=== PATIENT | male | born 1990 | race Hispanic/Latino ===

== ENCOUNTER 2018-08-07 17:33 | Emergency (ER) | payer SELFPAY ==
[~2018-08-07] VITALS: Ht 170.2 cm; Wt 81.6 kg
--- OUTSIDE RECORDS SUMMARY | 2018-08-07 17:34 | XMS REPORT | Clinical Summary ---
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 Active Problems Not on file Encounters Care Team Description Date Type Specialty Ed Ortiz MD Sprain of left ankle, unspecified ligament, initial encounter (Primary Dx) 04/03/2018 Emergency Emergency Medicine 04/03/2018 Travel after 08/06/2017 Social History Date Tobacco Use Types Packs/Day Years Used Current Every Day Smoker Smokeless Tobacco: Never Used Alcohol Use Drinks/Week oz/Week Comments No Alcohol Habits Answer Date Recorded How often do you have a drink containing alcohol? Never 04/03/2018 How many drinks containing alcohol do you have on Not asked a typical day when you are drinking? How often do you have six or more drinks on one Not asked occasion? Sex Assigned at Date Recorded Not on file Industry Job Start Date Occupation Not on file Not on file Not on file Travel End Travel History Travel Start No recent travel history available. Last Filed Vital Signs Time Taken Vital Sign Reading 04/03/2018 12:39 PM [employer] Blood Pressure 140/73 04/03/2018 12:39 PM SIGN LANG[employer]AGE IN[employer] Pulse 97 04/03/2018 11:28 AM SIGN LANGUAGE INSTRUCTOR Temperature 37.1 C (98.8 F) 04/03/2018 12:39 PM S[employer]AGE IN[employer] Respiratory Rate 16 04/03/2018 12:39 PM SIGN LANGUAGE IN[employer]CTOR Oxygen Saturation 99% - Inhaled Oxygen - Concentration 04/03/2018 11:29 AM SIGN LANGUAGE INSTRUCTOR Weight 86.2 kg (190 lb) 04/03/2018 11:29 AM SIGN LANGUAGE INSTRUCTOR Height 170.2 cm (5' 7") 04/03/2018 11:29 AM SIGN LANGUAGE INSTRUCTOR Body Mass Index 29.76 Plan of Treatment Health Maintenance Due Date Last Done Comments INFLUENZA VACCINE 09/19/2018 Procedures Comments Procedure Name Priority Date/Time Associated Diagnosis XR ANKLE 3+ VW LEFT STAT 04/03/2018 12:08 PM SIGN LANGUAGE INSTRUCTOR SPLINT APPLICATION Routine 04/03/2018 11:55 AM SIGN LANGUAGE INSTRUCTOR after 08/06/2017 Results * XR Ankle 3+ Vw Left (04/03/2018 12:08 PM SIGN LANGUAGE INSTRUCTOR) Specimen Narrative Performed At EXAMINATION:XR ANKLE 3VW LEFT [facility] CLINICAL HISTORY:Trauma COMPARISON:None. IMPRESSION: There is no evidence of fracture or dislocation No focal lesions are present Ankle mortise is not widened [id number] Procedure Note Hm Interface, Radiology Results Incoming - 04/03/2018 12:13 PM SIGN LANGUAGE INSTRUCTOR EXAMINATION: XR ANKLE 3 VW LEFT CLINICAL HISTORY: Trauma COMPARISON: None. IMPRESSION: There is no evidence of fracture or dislocation No focal lesions are present Ankle mortise is not widened [id number] Performing Organization Address [facility]/State[facility] [address] [place] [address] * Splint Application (04/03/2018 11:55 AM SIGN LANGUAGE INSTRUCTOR) Narrative Performed At Shane Eduardo NP 04/03/20181:26 PM Splint Application Performed by: Shane Eduardo NP Authorized by: Ed Ortiz MD Consent: Consent obtained:Verbal Consent given by:Patient Risks discussed:Discoloration, numbness, pain and swelling Pre-procedure details: Sensation:Normal Skin color:Normal Procedure details: Laterality:Left Location:Ankle Ankle:L ankle Splint type: Air splint Post-procedure details: Pain:Improved Sensation:Normal Skin color:Normal Patient tolerance of procedure:Tolerated well, no immediate complications after 08/06/2017 Insurance Type Payer Benefit Subscriber ID Effective Phone Address Plan / Dates Group PPO BCBS BCBS xxxxxxxxxxxxxxx 2017- CHOICE Present PPO/MICHEL SETH PPO Advance Directives Patient has advance care planning documents on file. For more information, isis dove contact: Grey Hernández [address] [place] [address]
--- OUTSIDE RECORDS SUMMARY | 2018-08-07 17:35 | XMS REPORT | Summary of Care ---
Author Author Brianna Huang M.A. Unknown Address Unknown Phone Unavailable Care Team Providers Care Accounting Officer Name Role Phone GAEL MONSON N.P. Unavailable Unavailable IONA ROSENBERG VT, GAEL Unavailable Unavailable JEANETTE RO VT, PINA Pelayo Unavailable Unavailable Functional Status Name Dates Details Functional status health issues are not documented Status: Name Dates Details Cognitive status health issues are not documented Status: Problems Name Dates Details Achilles bursitis of left lower extremity (726.71, M76.62) Status: Active Medications Name Dates Details Medications not documented Allergies and Adverse Reactions Name Dates Details Allergy history not documented Status: Procedures Procedure Dates Details Procedures not documented Immunization Name Dates Details Immunizations not documented Social History Name Dates Details Unknown if ever smoked Vital Signs Date Test Result Details No Known Vitals to report Results Date Description Value Details Results not documented Plan of Care Name Dates Details Planned Observations Planned Goals not documented Planned Encounters Appointment; GAEL MONSON NP On: 19-Apr-2018 8:15 Instructions Name Dates Details Instructions not documented Encounters Appointment; GAEL MONSON NP Encounter Diagnosis: Problem not documented On: 05-Apr-2018 10:15
--- OUTSIDE RECORDS SUMMARY | 2018-08-07 17:35 | XMS REPORT | Continuity of Care Document ---
Author Author [facility] Interface Address Unknown Phone Unavailable Problems Problem Status Onset Date Classification Date Reported Comments Source Discharge Diagnosis: Head injury 07/17/2013 07/20/2013 [facility] Discharge Diagnosis: Facial laceration 07/17/2013 07/20/2013 [facility] Discharge Diagnosis: Drug abuse 07/17/2013 07/20/2013 [facility] Discharge Diagnosis: Altered mental status 07/17/2013 07/20/2013 [facility] AMS Active 07/17/2013 [facility] Medications Medication Details Route Status Patient Instructions Ordering Provider Order Date Source Potassium Chloride 20 mEq, Route: PO, Drug form: ERTAB, ONCE, Dosing Weight 84.091, kg, Priority: STAT, Start date: 07/17/13 14:38:00, Stop date: 07/17/13 14:38:00 Inactive 07/17/2013 [facility] Sodium Chloride 0.154 MEQ/ML Injectable Solution 1,000 mL, 1,000 ml/hr, Infuse Over: 1 hr, Route: IV, ONCE, Priority: STAT, Dosing Weight 84.091 kg, Start date: 07/17/13 13:57:00, Duration: 1 doses or times, Stop date: 07/17/13 13:57:00 Inactive 07/17/2013 [facility] Sodium Chloride 0.154 MEQ/ML Injectable Solution 1,000 mL, Rate: 100 ml/hr, Infuse over: 10.1 hr, Route: IV, Total Volume: 1,011.2, Start date: 07/17/13 13:48:00, Duration: 3 day, Stop date: 07/20/13 13:47:00 Inactive 07/17/2013 [facility] Sodium Chloride 0.9% IV 25 mL, Route: IV, Start date: 07/17/13 13:36:00, Duration: 30 day, Stop date: 08/16/13 13:35:00, PRN Line Flush Inactive 07/17/2013 [facility] BD Normal Saline Flush 10 mL, Route: IV, Drug Form: INJ, PRN, PRN Line Flush, Start date: 07/17/13 13:36:00, Duration: 30 day, Stop date: 08/16/13 13:35:00Notes: (Same as: BD Posiflush) Inactive 07/17/2013 [facility] Saline Flush 0.9% 5 mL, Route: IVP, Drug Form: INJ, kg, PRN, PRN Line Flush, Start date: 07/17/13 13:22:00, Duration: 30 day, Stop date: 08/16/13 13:21:00Notes: (Same as: BD Posiflush) Inactive 07/17/2013 [facility] Allergies, Adverse Reactions, Alerts Substance Category Reaction Severity Reaction type Status Date Reported Comments Source Immunizations Immunization Date Given Site Status Last Updated Comments Source Results Order Name Results Value Reference Range Date Interpretation Comments Source DRUG SCREEN U Phencyc Scr Negative *NA* (07/17/13 3:52 PM) Negative 07/17/2013 [facility] DRUG SCREEN UDS Note See Note 3 (07/17/13 3:52 PM) 07/17/2013 3Interpretive Data: Drugs reported as positive have not been confirmed by a second method and should be used for medical purposes only. To order confirmation, contact laboratory. note: Below are cut-off concentrations for all urine drugs of abuse performed in the laboratory. Some drugs listed in the table may not be included in this panel. Description Cut-off concentration Amphetamine 1000 ng/mL Barbiturates 200 ng/mL Benzodiazepines 300 ng/mL Cocaine metabolites 300 ng/mL Opiates 300 ng/mL Phencyclidine 25 ng/mL Propoxyphene 300 ng/mL Marijuana metabolites 50 ng/mL Methadone 300 ng/mL Urine alcohol 20 mg/dL [facility] DRUG SCREEN U Cannab Scr Negative *NA* (07/17/13 3:52 PM) Negative 07/17/2013 [facility] DRUG SCREEN U Benzodia Scr Positive *ABN* (07/17/13 3:52 PM) Negative 07/17/2013 [facility] DRUG SCREEN U Cocaine Scr Negative *NA* (07/17/13 3:52 PM) Negative 07/17/2013 [facility] DRUG SCREEN U Opiate Scr Negative *NA* (07/17/13 3:52 PM) Negative 07/17/2013 [facility] DRUG SCREEN U Gissel Scr Negative *NA* (07/17/13 3:52 PM) Negative 07/17/2013 [facility] DRUG SCREEN U Amph Scr Negative *NA* (07/17/13 3:52 PM) Negative 07/17/2013 [facility] CARDIAC ENZYMES CK MB Index 0.4 0.0 - 2.5 07/17/2013 [facility] CARDIAC ENZYMES Troponin-I null 0.00 - 0.40 07/17/2013 [facility] CARDIAC ENZYMES CK MB 2.3 ng/mL 0.5 - 3.6 07/17/2013 [facility] CARDIAC ENZYMES Total CK 576 unit/L 12 - 191 07/17/2013 [facility] CHEM PANEL eGFR 65 mL/min/1.73m2 07/17/2013 1Result Comment: The eGFR is calculated using the CKD-EPI formula. In most young, healthy individuals the eGFR will be >90 mL/min/1.73m2. The eGFR declines with age. An eGFR of 60-89 may be normal in some populations, particularly the elderly, for whom the CKD-EPI formula has not been extensively validated. Use of the eGFR is not recommended in the following populations: Individuals with unstable creatinine concentrations, including patients and those with serious co-morbid conditions. Patients with extremes in muscle mass or diet. The data above are obtained from the National Kidney Disease Education Program (NKDEP) which additionally recommends that when the eGFR is used in patients with extremes of body mass index for purposes of drug dosing, the eGFR should be multiplied by the estimated BMI. [facility] CHEM PANEL Sodium Lvl 139 meq/L 135 - 145 07/17/2013 [facility] CHEM PANEL Chloride Lvl 104 meq/L 95 - 109 07/17/2013 [facility] CHEM PANEL CO2 22 meq/L 24 - 32 07/17/2013 [facility] CHEM PANEL Potassium Lvl 3.4 meq/L 3.5 - 5.1 07/17/2013 [facility] CHEM PANEL Calcium Lvl 8.5 mg/dL 8.5 - 10.5 07/17/2013 [facility] CHEM PANEL AGAP 16.4 meq/L 10.0 - 20.0 07/17/2013 [facility] CHEM PANEL Glucose Lvl 143 mg/dL 70 - 99 07/17/2013 2Interpretive Data: Adult reference range values reflect the clinical guidelines of the [place] [employer]. [facility] CHEM PANEL BUN 17 mg/dL 7 - 22 07/17/2013 [facility] CHEM PANEL Creatinine Lvl 1.7 mg/dL 0.5 - 1.4 07/17/2013 [facility] HEMATOLOGY Eosinophils # 0.3 K/CMM 0.0 - 0.5 07/17/2013 [facility] HEMATOLOGY Basophils # 0.0 K/CMM 0.0 - 0.2 07/17/2013 [facility] HEMATOLOGY Lymphocytes 29.5 % 20.0 - 40.0 07/17/2013 [facility] HEMATOLOGY Segs 62.0 % 45.0 - 75.0 07/17/2013 [facility] HEMATOLOGY Monocytes 5.8 % 2.0 - 12.0 07/17/2013 [facility] HEMATOLOGY Basophils 0.3 % 0.0 - 1.0 07/17/2013 [facility] HEMATOLOGY Eosinophils 2.4 % 0.0 - 4.0 07/17/2013 [facility] HEMATOLOGY Segs-Bands # 6.6 K/CMM 1.5 - 8.1 07/17/2013 [facility] HEMATOLOGY Lymphocytes # 3.2 K/CMM 1.0 - 5.5 07/17/2013 [facility] HEMATOLOGY Monocytes # 0.6 K/CMM 0.0 - 0.8 07/17/2013 [facility] HEMATOLOGY MCV 90.2 fL 80.0 - 94.0 07/17/2013 [facility] HEMATOLOGY MCH 30.2 pg 27.0 - 31.0 07/17/2013 [facility] HEMATOLOGY MCHC 33.5 g/dL 32.0 - 36.0 07/17/2013 [facility] HEMATOLOGY WBC 10.7 K/CMM 3.7 - 10.4 07/17/2013 [facility] HEMATOLOGY RDW 13.6 % 11.5 - 14.5 07/17/2013 [facility] HEMATOLOGY Platelet 196 K/CMM 133 - 450 07/17/2013 [facility] HEMATOLOGY MPV 9.3 fL 7.4 - 10.4 07/17/2013 [facility] HEMATOLOGY RBC 4.54 M/CMM 4.70 - 6.10 07/17/2013 [facility] HEMATOLOGY Hct 40.9 % 42.0 - 54.0 07/17/2013 [facility] HEMATOLOGY Hgb 13.7 g/dL 14.0 - 18.0 07/17/2013 [facility] HEMATOLOGY INR 1.04 0.85 - 1.17 07/17/2013 4Interpretive Data: RECOMMENDED RANGES FOR PROTIME INR: 2.0-3.0 for most medical and surgical thromboembolic states. 2.5-3.5 for artificial heart valves and recurrent embolism. INR SHOULD BE USED ONLY FOR PATIENTS ON STABLE ANTICOAGULANT THERAPY. [facility] HEMATOLOGY PT 13.5 s 12.0 - 14.7 07/17/2013 [facility] HEMATOLOGY PTT 26.2 s 22.9 - 35.8 07/17/2013 5Interpretive Data: Heparin Therapeutic Range: 57 - 92 Seconds [facility] Vital Signs Vital Sign Value Date Comments Source Heart Rate 75 07/17/2013 [facility] Temperature Oral (F) 98.0 F 07/17/2013 [facility] Respitory Rate 18 07/17/2013 [facility] Diastolic (mm Hg) 60 07/17/2013 [facility] Systolic (mm Hg) 113 07/17/2013 [facility] Respitory Rate 16 07/17/2013 [facility] Systolic (mm Hg) 118 07/17/2013 [facility] Diastolic (mm Hg) 72 07/17/2013 [facility] Heart Rate 85 07/17/2013 [facility] Temperature Oral (F) 98.2 F 07/17/2013 [facility] Diastolic (mm Hg) 72 07/17/2013 [facility] Respitory Rate 18 07/17/2013 [facility] Systolic (mm Hg) 138 07/17/2013 [facility] Heart Rate 102 07/17/2013 [facility] Temperature Oral (F) 98.4 F 07/17/2013 [facility] Weight 84.091 07/17/2013 [facility] BMI Calculated 29.04 07/17/2013 [facility] Height 170.18 cm 07/17/2013 [facility] Encounters Location Location Details Encounter Type Encounter Number Reason For Visit Attending Provider ADM Date DC Date Status Source [facility] [id number] Marija Sanchez 07/17/2013 07/17/2013 [facility] Procedures Procedure Code Date Perfomer Comments Source
--- OUTSIDE RECORDS SUMMARY | 2018-08-07 17:35 | XMS REPORT | Summary of Care ---
Author Organization Unknown Address Unknown Phone Unavailable Encounter HQ Nuno(BEULAH) [id number] Date(s): 07/17/13 - 07/17/13 [facility] [address] [place], [place] [address]- [facility] Discharge Diagnosis: Head injury Discharge Diagnosis: Facial laceration Discharge Diagnosis: Drug abuse Discharge Diagnosis: Altered mental status Discharge Disposition: Home Physician Attending: Marija Sanchez MD Reason for Visit AMS Vital Signs 1 2 3 Most recent to oldest [Reference Range]: 170.18 cm (07/17/13 1:18 PM) Height 98.0 DegF (07/17/13 4:54 PM) 98.2 DegF (07/17/13 3:41 PM) 98.4 DegF (07/17/13 2:40 PM) Temperature Oral [96.4-99.1 DegF] 113 mmHg (07/17/13 4:54 PM) 118 mmHg (07/17/13 3:41 PM) 138 mmHg (07/17/13 2:40 PM) Systolic Blood Pressure [90-140 mmHg] 60 mmHg (07/17/13 4:54 PM) 72 mmHg (07/17/13 3:41 PM) 72 mmHg (07/17/13 2:40 PM) Diastolic Blood Pressure [60-90 mmHg] 18 BRMIN (07/17/13 4:54 PM) 16 BRMIN (07/17/13 3:41 PM) 18 BRMIN (07/17/13 2:40 PM) Respiratory Rate [14-20 BRMIN] 75 bpm (07/17/13 4:54 PM) 85 bpm (07/17/13 3:41 PM) 102 bpm *HI* (07/17/13 2:40 PM) Peripheral Pulse Rate [60-100 bpm] 84.091 kg (07/17/13 1:18 PM) Weight 29.04 m2 (07/17/13 1:18 PM) Body Mass Index Problem List No data available for this section Allergies, Adverse Reactions, Alerts Substance Reaction Severity Status NKDA Active Medications BD Normal Saline Flush 10 mL, Route: IV, Drug Form: INJ, PRN, PRN Line Flush, Start date: 07/17/13 13:3 6:00, Duration: 30 day, Stop date: 08/16/13 13:35:00 Notes: (Same as: BD Posiflush) Start Date: 07/17/13 Stop Date: 07/17/13 Status: Discontinued NS (Bolus) IV - - 1,000 mL, 1,000 ml/hr, Infuse Over: 1 hr, Route: IV, ONCE, Priority: STAT, Dosin g Weight 84.091 kg, Start date: 07/17/13 13:57:00, Duration: 1 doses or times, S top date: 07/17/13 13:57:00 Start Date: 07/17/13 Stop Date: 07/17/13 Status: Completed potassium chloride 20 mEq, Route: PO, Drug form: ERTAB, ONCE, Dosing Weight 84.091, kg, Priority: S TAT, Start date: 07/17/13 14:38:00, Stop date: 07/17/13 14:38:00 Start Date: 07/17/13 Stop Date: 07/17/13 Status: Completed Saline Flush 0.9% 5 mL, Route: IVP, Drug Form: INJ, kg, PRN, PRN Line Flush, Start date: 07/17/13 13:22:00, Duration: 30 day, Stop date: 08/16/13 13:21:00 Notes: (Same as: BD Posiflush) Start Date: 07/17/13 Stop Date: 07/17/13 Status: Discontinued Sodium Chloride 0.9% IV 25 mL, Route: IV, Start date: 07/17/13 13:36:00, Duration: 30 day, Stop date: 13:35:00, PRN Line Flush Start Date: 07/17/13 Stop Date: 07/17/13 Status: Discontinued Sodium Chloride 0.9% IV 1,000 mL + M.V.I.-12 10 mL Daily + folic acid IV 1 mg Da stephanie + thiamine IV 1 1,000 mL, Rate: 100 ml/hr, Infuse over: 10.1 hr, Route: IV, Total Volume: 1,011. 2, Start date: 07/17/13 13:48:00, Duration: 3 day, Stop date: 07/20/13 13:47:00 Start Date: 07/17/13 Stop Date: 07/17/13 Status: Discontinued Results ELECTROLYTES Most recent to 1 oldest [Reference Range]: Sodium Lvl [135-145 139 mEq/L mEq/L] (07/17/13 1:20 PM) Potassium Lvl 3.4 mEq/L [3.5-5.1 mEq/L] *LOW* (07/17/13 1:20 PM) Chloride Lvl [95-109 104 mEq/L mEq/L] (07/17/13 1:20 PM) CO2 [24-32 mEq/L] 22 mEq/L *LOW* (07/17/13 1:20 PM) AGAP [10.0-20.0 16.4 mEq/L mEq/L] (07/17/13 1:20 PM) CHEM PANEL Most recent to 1 oldest [Reference Range]: Creatinine Lvl 1.7 mg/dL [0.5-1.4 mg/dL] *HI* (07/17/13 1:20 PM) eGFR 65 mL/min/1.73m2 1 *NA* (07/17/13 1:20 PM) BUN [7-22 mg/dL] 17 mg/dL (07/17/13 1:20 PM) Glucose Lvl [70-99 143 mg/dL 2 mg/dL] *HI* (07/17/13 1:20 PM) Calcium Lvl 8.5 mg/dL [8.5-10.5 mg/dL] (07/17/13 1:20 PM) 1Result Comment: The eGFR is calculated using [...] from the National Kidney Disease Education Program ( NKDEP) which additionally recommends that when the eGFR is used in patients with extremes of body mass index for purposes of drug dosing, the eGFR should be mul tiplied by the estimated BMI. 2Interpretive Data: Adult reference range values reflect the clinical guidelines of the [place] [employer]. CARDIAC ENZYMES Most recent to 1 oldest [Reference Range]: Total CK [12-191 576 unit/L unit/L] *HI* (07/17/13 1:20 PM) CK MB [0.5-3.6 2.3 ng/mL ng/mL] (07/17/13 1:20 PM) CK MB Index 0.4 [0.0-2.5] (07/17/13 1:20 PM) Troponin-I <0.02 ng/mL [0.00-0.40 ng/mL] (07/17/13 1:20 PM) DRUG SCREEN Most recent to 1 oldest [Reference Range]: U Amph Scr Negative [Negative] *NA* (07/17/13 3:52 PM) U Gissel Scr Negative [Negative] *NA* (07/17/13 3:52 PM) U Benzodia Scr Positive [Negative] *ABN* (07/17/13 3:52 PM) U Cocaine Scr Negative [Negative] *NA* (07/17/13 3:52 PM) U Opiate Scr Negative [Negative] *NA* (07/17/13 3:52 PM) U Phencyc Scr Negative [Negative] *NA* (07/17/13 3:52 PM) U Cannab Scr Negative [Negative] *NA* (07/17/13 3:52 PM) UDS Note See Note 3 (07/17/13 3:52 PM) 3Interpretive Data: Drugs reported as positive have [...] Methadone 300 ng/mL Urine alcohol 20 mg/dL HEMATOLOGY Most recent to 1 oldest [Reference Range]: WBC [3.7-10.4 K/CMM] 10.7 K/CMM *HI* (07/17/13 1:20 PM) RBC [4.70-6.10 4.54 M/CMM M/CMM] *LOW* (07/17/13 1:20 PM) Hgb [14.0-18.0 g/dL] 13.7 g/dL *LOW* (07/17/13 1:20 PM) Hct [42.0-54.0 %] 40.9 % *LOW* (07/17/13 1:20 PM) MCV [80.0-94.0 fL] 90.2 fL (07/17/13 1:20 PM) MCH [27.0-31.0 pg] 30.2 pg (07/17/13 1:20 PM) MCHC [32.0-36.0 33.5 g/dL g/dL] (07/17/13 1:20 PM) RDW [11.5-14.5 %] 13.6 % (07/17/13 1:20 PM) Platelet [133-450 196 K/CMM K/CMM] (07/17/13 1:20 PM) MPV [7.4-10.4 fL] 9.3 fL (07/17/13 1:20 PM) Segs [45.0-75.0 %] 62.0 % (07/17/13 1:20 PM) Lymphocytes 29.5 % [20.0-40.0 %] (07/17/13 1:20 PM) Monocytes [2.0-12.0 5.8 % %] (07/17/13 1:20 PM) Eosinophils [0.0-4.0 2.4 % %] (07/17/13 1:20 PM) Basophils [0.0-1.0 0.3 % %] (07/17/13 1:20 PM) Segs-Bands # 6.6 K/CMM [1.5-8.1 K/CMM] (07/17/13 1:20 PM) Lymphocytes # 3.2 K/CMM [1.0-5.5 K/CMM] (07/17/13 1:20 PM) Monocytes # [0.0-0.8 0.6 K/CMM K/CMM] (07/17/13 1:20 PM) Eosinophils # 0.3 K/CMM [0.0-0.5 K/CMM] (07/17/13 1:20 PM) Basophils # [0.0-0.2 0.0 K/CMM K/CMM] (07/17/13 1:20 PM) PT [12.0-14.7 13.5 seconds seconds] (07/17/13 1:20 PM) INR [0.85-1.17] 1.04 4 (07/17/13 1:20 PM) PTT [22.9-35.8 26.2 seconds 5 seconds] (07/17/13 1:20 PM) 4Interpretive Data: RECOMMENDED RANGES FOR PROTIME INR: 2.0-3.0 for most medical and surgical thromboembolic states. 2.5-3.5 for artificial heart valves and recurrent embolism. INR SHOULD BE USED ONLY FOR PATIENTS ON STABLE ANTICOAGULANT THERAPY. 5Interpretive Data: Heparin Therapeutic Range: 57 - 92 Seconds Medications Administered During Your Visit No data available for this section Immunizations No data available for this section
== END 2018-08-07 18:16 | disposition left against medical advice (07) ==
LOC: ER 17:33
DX: H53.8 Other visual disturbances (principal)